=== PATIENT | male | born 1970 | race Caucasian/White ===

== ENCOUNTER 2019-06-29 11:39 | Inpatient (IN) | payer OTHER ==
[~2019-06-29] VITALS: Ht 193 cm; Wt 124.2 kg
[~2019-06-29 11:39] MED LIST: BUPIVACAINE 0.25%/EPI 1:200,000/PF 10 ML VIAL ONE; BUPIVACAINE/EPI/PF 0.5% 30 ML VIAL ONE; RINGERS SOLUTION,LACTATED 1,000 ML IV ONE; VANCOMYCIN HCL 1 GM/VIAL ONE
[2019-06-29] MEDS ORDERED: RINGERS SOLUTION,LACTATED 1,000 ML IV ONE (12:00)
[2019-06-29 12:23] LABS: BASOPHILS % (AUTO) 0.3 % (0.0-2.0); EOSINOPHILS % (AUTO) 4.2 % (1.0-6.0); HEMATOCRIT 37.3 % (41-53); HEMOGLOBIN 12.4 g/dL (13.5-17.5); LYMPHOCYTES # (AUTO) 1.5 K/uL (1.0-4.8); MEAN CORPUSCULAR HEMOGLOBIN 27.9 pg (26.0-34.0); MEAN CORPUSCULAR HGB CONC 33.2 G/dL (31.0-37.0); MEAN CORPUSCULAR VOLUME 84 fL (80-100); MONOCYTES # (AUTO) 0.7 K/uL (0.1-1.0); MONOCYTES % (AUTO) 8.2 % (2.0-9.0); NEUTROPHILS # (AUTO) 6.4 K/uL (1.8-7.7); NEUTROPHILS % (AUTO) 70.3 % (40.0-70.0); PLATELET COUNT (AUTO) 374 K/uL (150-450); RED BLOOD CELL COUNT(AUTO) 4.44 MIL/uL (4.50-5.90); RED CELL DISTRIBUTION WIDTH 14.4 % (11.5-14.5)
[2019-06-29 12:33] LABS: ANION GAP 8 mmol/L (8-16); CALCIUM, TOTAL 9.4 mg/dL (8.8-10.5); CARBON DIOXIDE 27 mmol/L (22-29); CHLORIDE 103 mmol/L (98-107); CREATININE 0.76 mg/dL (0.60-1.30); GLOMERULAR FILTR. RATE CALC > 60 mL/min (>60); GLUCOSE,RANDOM 121 mg/dL (70-110); SODIUM SERUM 138 mmol/L (136-145); UREA NITROGEN, BLOOD 16 mg/dL (7-18)
[2019-06-29 12:35] LABS: PROTHROMBIN TIME 10.9 SEC (9.4-11.6)
[2019-06-29 12:39] LABS: ALANINE AMINOTRANSFERASE 8 U/L (12-78); ALKALINE PHOSPHATASE 66 U/L (46-116); ASPARTATE AMINOTRANSFERASE 19 U/L (15-37); BILIRUBIN,TOTAL 0.5 mg/dL (0.1-1.0); TOTAL PROTEIN, SERUM 8.5 g/dL (6.4-8.2)
[2019-06-29] MEDS ORDERED: SODIUM CHLORIDE 0.9% 250 ML IV ONE (12:56)
[2019-06-29] MEDS ORDERED: PROPOFOL 1000 MG/ISO-OSM 200 ML IV ONE (13:17)
[2019-06-29] MEDS ORDERED: KETAMINE HCL 50 MG/ML 10 ML VIAL ONE (13:17)
[2019-06-29] MEDS ORDERED: SODIUM CHLORIDE 0.9% 500 ML IV ONE (13:19)
[2019-06-29] MEDS ORDERED: RINGERS SOLUTION,LACTATED 2,000 ML IV ONE (14:02)
[2019-06-29] MEDS ORDERED: DOCUSATE SODIUM 100 MG CAPSULE PO PRN (14:30)
[2019-06-29] MEDS ORDERED: BISACODYL 10 MG RECTAL RECTAL SUPPOSITORY PR PRN (14:30)
[2019-06-29] MEDS ORDERED: HYDROmorphone 2 MG/ML SYRINGE IVP PRN (14:30)
[2019-06-29] MEDS ORDERED: ONDANSETRON HCL 4 MG/2 ML VIAL IVP PRN (14:30)
[2019-06-29] MEDS ORDERED: HYDROCODONE/ACETAMINOPHEN 5-325 MG TABLET PO PRN (14:30)
[2019-06-29] MEDS ORDERED: ALBUTEROL SULFATE 2.5 MG/0.5 ML NEB SOLUTION NEB PRN (14:30)
[2019-06-29] MEDS ORDERED: 0.9% SODIUM CHLORIDE 10 ML SYRINGE IVP PRN (14:30)
[2019-06-29 16:40] LABS: ALANINE AMINOTRANSFERASE 8 U/L (12-78); ALBUMIN 3.7 g/dL (3.4-5.0); ALKALINE PHOSPHATASE 64 U/L (46-116); ANION GAP 11 mmol/L (8-16); ASPARTATE AMINOTRANSFERASE 18 U/L (15-37); BILIRUBIN,TOTAL 0.6 mg/dL (0.1-1.0); CALCIUM, TOTAL 9.6 mg/dL (8.8-10.5); CARBON DIOXIDE 26 mmol/L (22-29); CHLORIDE 103 mmol/L (98-107); CREATININE 0.68 mg/dL (0.60-1.30); GLOMERULAR FILTR. RATE CALC > 60 mL/min (>60); GLUCOSE,RANDOM 118 mg/dL (70-110); POTASSIUM 3.8 mmol/L (3.5-5.1); SODIUM SERUM 140 mmol/L (136-145); TOTAL PROTEIN, SERUM 7.9 g/dL (6.4-8.2); UREA NITROGEN, BLOOD 15 mg/dL (7-18)
[2019-06-29 18:26] VITALS: BP 150/98
[2019-06-29] MEDS: ACETAMINOPHEN 325 MG TABLET PO PRN (19:14)
[2019-06-29 19:45] VITALS: BP 147/97
[2019-06-29] MEDS ORDERED: BISA-151 PO (23:47)
[2019-06-29] MEDS ORDERED: LISI-662 PO (23:47)
[2019-06-29] MEDS ORDERED: CLON.5 PO (23:47)
[2019-06-29] MEDS ORDERED: FURO20 PO (23:47)
[2019-06-29] MEDS ORDERED: ASPI-1182 PO (23:47)
[2019-06-29] MEDS ORDERED: ACET-2247 PO (23:47)
[2019-06-29] MEDS ORDERED: AMLO10TA7 PO (23:47)
[2019-06-29] MEDS ORDERED: NAPR-1025 PO (23:47)
[2019-06-29] MEDS ORDERED: FE PR (23:47)
[2019-06-29] MEDS ORDERED: SENN8.6T90 PO (23:47)
[2019-06-29] MEDS ORDERED: MOM30 PO (23:47)
[2019-06-30] MEDS ORDERED: BISACODYL 5 MG EC TABLET PO PRN
[2019-06-30] MEDS ORDERED: MAGNESIUM HYDROXIDE SUSPENSION 30 ML UDCUP PO PRN
[2019-06-30] MEDS ORDERED: IPRATROPIUM BROMIDE 0.5 MG/2.5 ML NEB SOLUTION NEB PRN (00:15)
[2019-06-30] MEDS ORDERED: ALBUTEROL SULFATE 2.5 MG/0.5 ML NEB SOLUTION NEB PRN ×2 (00:15)
[2019-06-30] MEDS ORDERED: MULT-1203 PO (00:47)
[2019-06-30] MEDS ORDERED: ZINC30CA PO (00:52)
[2019-06-30] MEDS ORDERED: ZINC1CAP2 PO (00:52)
[2019-06-30] MEDS: ClonazePAM 0.5 MG TABLET PO SCH ×3 (01:56→20:37)
[2019-06-30] MEDS: ALBUTEROL SULFATE 2.5 MG/0.5 ML NEB SOLUTION NEB SCH ×4 (02:00→19:58)
[2019-06-30] MEDS: IPRATROPIUM BROMIDE 0.5 MG/2.5 ML NEB SOLUTION NEB SCH ×4 (02:00→19:58)
[2019-06-30] MEDS: ACETAMINOPHEN 325 MG TABLET PO PRN ×2 (04:12→13:24)
[2019-06-30 04:35] VITALS: BP 153/111
[2019-06-30 06:17] LABS: BASOPHILS % (AUTO) 0.4 % (0.0-2.0); EOSINOPHILS % (AUTO) 6.4 % (1.0-6.0); HEMATOCRIT 36.2 % (41-53); HEMOGLOBIN 12.2 g/dL (13.5-17.5); LYMPHOCYTES # (AUTO) 1.5 K/uL (1.0-4.8); MEAN CORPUSCULAR HEMOGLOBIN 28.5 pg (26.0-34.0); MEAN CORPUSCULAR HGB CONC 33.7 G/dL (31.0-37.0); MEAN CORPUSCULAR VOLUME 85 fL (80-100); MONOCYTES # (AUTO) 0.7 K/uL (0.1-1.0); MONOCYTES % (AUTO) 10.3 % (2.0-9.0); NEUTROPHILS # (AUTO) 4.1 K/uL (1.8-7.7); NEUTROPHILS % (AUTO) 60.9 % (40.0-70.0); PLATELET COUNT (AUTO) 352 K/uL (150-450); RED BLOOD CELL COUNT(AUTO) 4.28 MIL/uL (4.50-5.90); RED CELL DISTRIBUTION WIDTH 14.3 % (11.5-14.5)
[2019-06-30 06:43] LABS: ANION GAP 8 mmol/L (8-16); CALCIUM, TOTAL 9.8 mg/dL (8.8-10.5); CARBON DIOXIDE 27 mmol/L (22-29); CHLORIDE 103 mmol/L (98-107); CREATININE 0.67 mg/dL (0.60-1.30); GLOMERULAR FILTR. RATE CALC > 60 mL/min (>60); GLUCOSE,RANDOM 132 mg/dL (70-110); POTASSIUM 3.7 mmol/L (3.5-5.1); SODIUM SERUM 138 mmol/L (136-145); UREA NITROGEN, BLOOD 13 mg/dL (7-18)
[2019-06-30 08:00] VITALS: BP 165/106
[2019-06-30] MEDS: OxyCODONE HCL/ACETAMINOPHEN 5-325 MG TABLET PO PRN ×3 (09:01→22:16)
[2019-06-30] MEDS: ASPIRIN 81 MG EC TABLET PO SCH (09:02)
[2019-06-30] MEDS: LISINOPRIL 20 MG TABLET PO SCH (09:02)
[2019-06-30] MEDS: AmLODIPine BESYLATE 10 MG TABLET PO SCH (09:02)
[2019-06-30] MEDS: FUROSEMIDE 20 MG TABLET PO SCH (09:03)
[2019-06-30] MEDS: FAMOTIDINE 20 MG TABLET PO SCH (09:03)
[2019-06-30 12:00] VITALS: BP 162/105
[2019-06-30] MEDS: METOPROLOL TARTRATE 25 MG TABLET PO SCH ×2 (14:07→20:37)
[2019-06-30 16:00] VITALS: BP 159/105
[2019-06-30 19:50] LABS: ABG A-A DIFF O2 31.1 mmHg (10-20.0); ABG BASE EXCESS 1.1 mmol/L (-2.0-3.0); ABG CARBOXYHEMOGLOBIN 1.3 % (0.0-1.5); ABG HCO3 25.7 mmol/L (22.0-26.0); ABG METHEMOGLOBIN 0.3 % (0.0-1.5); ABG OXYGEN CONTENT 16.6 mL/dL (15.0-23.0); ABG OXYGEN SATURATION 95.4 % (95.0-98.0); ABG OXYHEMOGLOBIN 93.9 % (94.0-100.0); ABG PCO2 36 mmHg (35-45); ABG PH 7.458 (7.35-7.450); ABG TOTAL HEMOGLOBIN 12.5 G/dL (12.0-18.0); PO2, ARTERIAL BG 75.4 mmHg (88.0-96.0); SOURCE, BLOOD GAS ARTERIAL; TEMPERATURE, FAHRENHEIT, BG 98.6 FAHREN (96.0-98.6)
[2019-06-30 19:51] LABS: SITE, BLOOD GAS RT RADIAL
[2019-06-30] MEDS: VITAMINS A & D 113 GM OINTMENT TP SCH (20:46)
[2019-06-30 20:56] VITALS: BP 165/123
[2019-07-01] MEDS: ALBUTEROL SULFATE 2.5 MG/0.5 ML NEB SOLUTION NEB SCH ×4 (02:06→20:00)
[2019-07-01] MEDS: IPRATROPIUM BROMIDE 0.5 MG/2.5 ML NEB SOLUTION NEB SCH ×4 (02:07→20:00)
[2019-07-01 04:00] VITALS: BP 159/105
[2019-07-01] MEDS: OxyCODONE HCL/ACETAMINOPHEN 5-325 MG TABLET PO PRN (04:48)
[2019-07-01] MEDS ORDERED: INFLUENZA VIRUS VACCINE QVS 2019-20 (3YR+)/PF 60 MCG/0.5 ML SYRINGE IM ONE (07:15)
[2019-07-01] MEDS ORDERED: PNEUMOCOCCAL VACCINE POLYVALENT 0.5 ML VIAL [PPSV23] IM ONE (07:15)
[2019-07-01 07:35] VITALS: BP 167/98
[2019-07-01] MEDS: LISINOPRIL 20 MG TABLET PO SCH (07:55)
[2019-07-01] MEDS: FAMOTIDINE 20 MG TABLET PO SCH (07:55)
[2019-07-01] MEDS: VITAMINS A & D 113 GM OINTMENT TP SCH ×2 (07:56→20:27)
[2019-07-01] MEDS: FUROSEMIDE 20 MG TABLET PO SCH (07:56)
[2019-07-01] MEDS: METOPROLOL TARTRATE 25 MG TABLET PO SCH ×2 (07:56→20:17)
[2019-07-01] MEDS: AmLODIPine BESYLATE 10 MG TABLET PO SCH (07:56)
[2019-07-01] MEDS: MULTIVITAMINS WITH MINERALS, THERAPEUTIC TABLET PO SCH (07:56)
[2019-07-01] MEDS: ASPIRIN 81 MG EC TABLET PO SCH (07:56)
[2019-07-01] MEDS: ClonazePAM 0.5 MG TABLET PO SCH ×2 (07:56→20:17)
[2019-07-01 11:20] VITALS: BP 142/75
[2019-07-01] MEDS ORDERED: SODIUM CHLORIDE 0.9% 0 ML ONE (11:28)
[2019-07-01] MEDS ORDERED: IOVERSOL 350 MG/ML 150 ML VIAL ONE (11:28)
[2019-07-01 15:10] VITALS: BP 140/84
[2019-07-01 19:54] VITALS: BP 152/104
[2019-07-01] MEDS: HYDROmorphone 2 MG/ML SYRINGE IVP PRN ×2 (20:23→23:52)
[2019-07-01 23:50] VITALS: BP 127/89
[2019-07-02 00:39] VITALS: BP 132/88
[2019-07-02] MEDS: IPRATROPIUM BROMIDE 0.5 MG/2.5 ML NEB SOLUTION NEB SCH ×4 (02:00→19:59)
[2019-07-02] MEDS: ALBUTEROL SULFATE 2.5 MG/0.5 ML NEB SOLUTION NEB SCH ×4 (02:00→19:59)
[2019-07-02 04:39] VITALS: BP 144/94
[2019-07-02 07:16] VITALS: BP 162/82
[2019-07-02] MEDS: AmLODIPine BESYLATE 10 MG TABLET PO SCH (07:43)
[2019-07-02] MEDS: FUROSEMIDE 20 MG TABLET PO SCH (07:43)
[2019-07-02] MEDS: ASPIRIN 81 MG EC TABLET PO SCH (07:43)
[2019-07-02] MEDS: METOPROLOL TARTRATE 25 MG TABLET PO SCH ×2 (07:43→21:20)
[2019-07-02] MEDS: MULTIVITAMINS WITH MINERALS, THERAPEUTIC TABLET PO SCH (07:43)
[2019-07-02] MEDS: ClonazePAM 0.5 MG TABLET PO SCH ×2 (07:43→21:20)
[2019-07-02] MEDS: LISINOPRIL 20 MG TABLET PO SCH (07:43)
[2019-07-02] MEDS: FAMOTIDINE 20 MG TABLET PO SCH (07:43)
[2019-07-02] MEDS: VITAMINS A & D 113 GM OINTMENT TP SCH ×3 (07:44→21:20)
[2019-07-02] MEDS: HYDROmorphone 2 MG/ML SYRINGE IVP PRN ×4 (08:48→23:09)
[2019-07-02 09:06] LABS: BASOPHILS % (AUTO) 0.3 % (0.0-2.0); HEMATOCRIT 36.3 % (41-53); HEMOGLOBIN 12.2 g/dL (13.5-17.5); LYMPHOCYTES # (AUTO) 1.4 K/uL (1.0-4.8); LYMPHOCYTES % (AUTO) 13.4 % (22.0-44.0); MEAN CORPUSCULAR HEMOGLOBIN 28.3 pg (26.0-34.0); MEAN CORPUSCULAR HGB CONC 33.5 G/dL (31.0-37.0); MEAN CORPUSCULAR VOLUME 85 fL (80-100); MONOCYTES # (AUTO) 0.7 K/uL (0.1-1.0); MONOCYTES % (AUTO) 6.7 % (2.0-9.0); NEUTROPHILS # (AUTO) 7.7 K/uL (1.8-7.7); NEUTROPHILS % (AUTO) 75.6 % (40.0-70.0); PLATELET COUNT (AUTO) 367 K/uL (150-450); RED BLOOD CELL COUNT(AUTO) 4.29 MIL/uL (4.50-5.90); RED CELL DISTRIBUTION WIDTH 13.9 % (11.5-14.5)
[2019-07-02 09:31] LABS: ALANINE AMINOTRANSFERASE 11 U/L (12-78); ALBUMIN 3.6 g/dL (3.4-5.0); ALKALINE PHOSPHATASE 65 U/L (46-116); ANION GAP 9 mmol/L (8-16); ASPARTATE AMINOTRANSFERASE 15 U/L (15-37); BILIRUBIN,TOTAL 0.5 mg/dL (0.1-1.0); CALCIUM, TOTAL 9.5 mg/dL (8.8-10.5); CARBON DIOXIDE 28 mmol/L (22-29); CHLORIDE 101 mmol/L (98-107); CREATININE 0.92 mg/dL (0.60-1.30); GLOMERULAR FILTR. RATE CALC > 60 mL/min (>60); GLUCOSE,RANDOM 188 mg/dL (70-110); SODIUM SERUM 138 mmol/L (136-145); TOTAL PROTEIN, SERUM 7.5 g/dL (6.4-8.2); UREA NITROGEN, BLOOD 21 mg/dL (7-18)
[2019-07-02 11:10] VITALS: BP 126/81
[2019-07-02] MEDS ORDERED: MAGNESIUM SULFATE 4 GM/WATER 100 ML IV PRN (16:00)
[2019-07-02] MEDS ORDERED: MAGNESIUM SULFATE 2 GM/WATER 50 ML IV PRN (16:00)
[2019-07-02] MEDS: MAGNESIUM OXIDE 400 MG TABLET PO PRN ×2 (16:01→21:20)
[2019-07-02 19:53] VITALS: BP 131/69
[2019-07-02 23:26] VITALS: BP 132/80
[2019-07-03] MEDS: OxyCODONE HCL/ACETAMINOPHEN 5-325 MG TABLET PO PRN ×2 (01:18→21:08)
[2019-07-03] MEDS: ALBUTEROL SULFATE 2.5 MG/0.5 ML NEB SOLUTION NEB SCH ×3 (02:00→15:15)
[2019-07-03] MEDS: IPRATROPIUM BROMIDE 0.5 MG/2.5 ML NEB SOLUTION NEB SCH ×3 (02:00→15:15)
[2019-07-03] MEDS: MAGNESIUM OXIDE 400 MG TABLET PO PRN (02:05)
[2019-07-03] MEDS: HYDROmorphone 2 MG/ML SYRINGE IVP PRN ×2 (03:39→22:42)
[2019-07-03 03:45] VITALS: BP 147/85
[2019-07-03 05:39] LABS: BASOPHILS % (AUTO) 0.3 % (0.0-2.0); EOSINOPHILS % (AUTO) 4.6 % (1.0-6.0); HEMATOCRIT 35.7 % (41-53); HEMOGLOBIN 11.9 g/dL (13.5-17.5); LYMPHOCYTES # (AUTO) 1.7 K/uL (1.0-4.8); MEAN CORPUSCULAR HEMOGLOBIN 28.1 pg (26.0-34.0); MEAN CORPUSCULAR HGB CONC 33.2 G/dL (31.0-37.0); MEAN CORPUSCULAR VOLUME 85 fL (80-100); MONOCYTES # (AUTO) 1.1 K/uL (0.1-1.0); MONOCYTES % (AUTO) 11.2 % (2.0-9.0); NEUTROPHILS # (AUTO) 6.7 K/uL (1.8-7.7); NEUTROPHILS % (AUTO) 66.9 % (40.0-70.0); PLATELET COUNT (AUTO) 377 K/uL (150-450); RED BLOOD CELL COUNT(AUTO) 4.23 MIL/uL (4.50-5.90); RED CELL DISTRIBUTION WIDTH 14.1 % (11.5-14.5)
[2019-07-03 06:11] LABS: ALANINE AMINOTRANSFERASE 8 U/L (12-78); ALBUMIN 3.3 g/dL (3.4-5.0); ALKALINE PHOSPHATASE 59 U/L (46-116); ANION GAP 9 mmol/L (8-16); ASPARTATE AMINOTRANSFERASE 17 U/L (15-37); BILIRUBIN,TOTAL 0.6 mg/dL (0.1-1.0); CALCIUM, TOTAL 9.3 mg/dL (8.8-10.5); CARBON DIOXIDE 29 mmol/L (22-29); CHLORIDE 101 mmol/L (98-107); CREATININE 0.83 mg/dL (0.60-1.30); GLOMERULAR FILTR. RATE CALC > 60 mL/min (>60); GLUCOSE,RANDOM 129 mg/dL (70-110); SODIUM SERUM 139 mmol/L (136-145); TOTAL PROTEIN, SERUM 7.6 g/dL (6.4-8.2); UREA NITROGEN, BLOOD 20 mg/dL (7-18)
[2019-07-03] MEDS ORDERED: SODIUM CHLORIDE 0.9% 1,000 ML IV ONE ×2 (07:47→08:11)
[2019-07-03] MEDS ORDERED: SUGAMMADEX SODIUM 200 MG/2 ML VIAL IVP ONE (09:48)
[2019-07-03] MEDS ORDERED: ALBUTEROL SULFATE 2.5 MG/0.5 ML NEB SOLUTION NEB ONE (10:06)
[2019-07-03] MEDS ORDERED: IPRATROPIUM BROMIDE 0.5 MG/2.5 ML NEB SOLUTION NEB ONE (10:06)
[2019-07-03] MEDS: AmLODIPine BESYLATE 10 MG TABLET PO SCH (11:41)
[2019-07-03] MEDS: LISINOPRIL 20 MG TABLET PO SCH (11:41)
[2019-07-03] MEDS: MULTIVITAMINS WITH MINERALS, THERAPEUTIC TABLET PO SCH (11:42)
[2019-07-03] MEDS: FAMOTIDINE 20 MG TABLET PO SCH (11:42)
[2019-07-03] MEDS: ClonazePAM 0.5 MG TABLET PO SCH ×2 (11:42→21:05)
[2019-07-03] MEDS: METOPROLOL TARTRATE 25 MG TABLET PO SCH ×2 (11:42→21:05)
[2019-07-03] MEDS: ASPIRIN 81 MG EC TABLET PO SCH (11:42)
[2019-07-03] MEDS: FUROSEMIDE 20 MG TABLET PO SCH (11:42)
[2019-07-03] MEDS: VITAMINS A & D 113 GM OINTMENT TP SCH ×2 (11:44→21:00)
[2019-07-03 11:46] VITALS: BP 120/85
[2019-07-03 15:11] VITALS: BP 136/78
[2019-07-03 20:22] VITALS: BP 118/70
[2019-07-03 23:56] VITALS: BP 135/92
[2019-07-04] VITALS (9 sets, daily range): BP systolic 119–186; BP diastolic 62–89
[2019-07-04] MEDS: IPRATROPIUM BROMIDE 0.5 MG/2.5 ML NEB SOLUTION NEB SCH ×5 (02:00→20:35)
[2019-07-04] MEDS: ALBUTEROL SULFATE 2.5 MG/0.5 ML NEB SOLUTION NEB SCH ×5 (02:00→20:35)
[2019-07-04] MEDS ORDERED: MIDAZOLAM HCL 2 MG/2 ML VIAL IVP ONE ×2 (06:24→12:00)
[2019-07-04] MEDS ORDERED: FentaNYL CITRATE-PF 100 MCG/2 ML VIAL IVP ONE (06:24)
[2019-07-04] MEDS ORDERED: PROPOFOL 1% 20 ML VIAL IVP ONE (06:24)
[2019-07-04] MEDS ORDERED: ROCURONIUM BROMIDE 10 MG/ML 5 ML VIAL IVP ONE (06:24)
[2019-07-04] MEDS ORDERED: LIDOCAINE/PF 2% 5 ML VIAL IM ONE (06:24)
[2019-07-04] MEDS ORDERED: KETAMINE HCL 50 MG/ML 10 ML VIAL IVP ONE ×2 (06:24→12:00)
[2019-07-04] MEDS: FUROSEMIDE 20 MG TABLET PO SCH (08:58)
[2019-07-04] MEDS: ASPIRIN 81 MG EC TABLET PO SCH (08:58)
[2019-07-04] MEDS: METOPROLOL TARTRATE 25 MG TABLET PO SCH ×2 (08:58→21:27)
[2019-07-04] MEDS: MULTIVITAMINS WITH MINERALS, THERAPEUTIC TABLET PO SCH (08:58)
[2019-07-04] MEDS: OxyCODONE HCL/ACETAMINOPHEN 5-325 MG TABLET PO PRN (08:58)
[2019-07-04] MEDS: AmLODIPine BESYLATE 10 MG TABLET PO SCH (08:58)
[2019-07-04] MEDS: ClonazePAM 0.5 MG TABLET PO SCH ×2 (08:59→21:27)
[2019-07-04] MEDS: FAMOTIDINE 20 MG TABLET PO SCH (08:59)
[2019-07-04] MEDS: LISINOPRIL 20 MG TABLET PO SCH (08:59)
[2019-07-04] MEDS: VITAMINS A & D 113 GM OINTMENT TP SCH ×2 (09:00→21:00)
[2019-07-04] MEDS ORDERED: RINGERS SOLUTION,LACTATED 1,000 ML IV ONE (11:45)
[2019-07-04] MEDS ORDERED: FentaNYL CITRATE-PF 250 MCG/5 ML VIAL IVP ONE (12:00)
[2019-07-04] MEDS ORDERED: HYDROmorphone 2 MG/ML SYRINGE IVP ONE (12:00)
[2019-07-04] MEDS ORDERED: SODIUM CHLORIDE 0.9% 500 ML IV ONE (12:51)
[2019-07-04] MEDS ORDERED: VANCOMYCIN HCL 1 GM/VIAL ONE (13:55)
[2019-07-04] MEDS ORDERED: BUPIVACAINE HCL/PF 0.5% 30 ML VIAL ONE (13:55)
[2019-07-04] MEDS ORDERED: SODIUM CHLORIDE 0.9% 20 ML ONE (13:56)
[2019-07-04] MEDS ORDERED: BACITRACIN 50,000 UNITS/VIAL ONE ×2 (13:56→17:11)
[2019-07-04] MEDS ORDERED: BACITRACIN 28.4 GM OINTMENT TP ONE (14:04)
[2019-07-04] MEDS ORDERED: SODIUM CHLORIDE 0.9% 250 ML IV ONE (14:05)
[2019-07-04] MEDS ORDERED: MINERAL OIL/PETROLATUM,WHITE PF 3.5 GM OPHTHALMIC OINTMENT ONE (14:12)
[2019-07-04] MEDS ORDERED: PHENYLEPHRINE 200 MG/D5%-WATER 250 ML IV PRN (14:30)
[2019-07-04] MEDS ORDERED: PIPERACILLIN SODIUM/TAZOBACTAM 3.375 GM/VIAL TP ONE (15:30)
[2019-07-04] MEDS ORDERED: TRANEXAMIC ACID 1,000 MG in DEXTROSE 5%-WATER 50 ML IV ONE (16:15)
[2019-07-04] MEDS ORDERED: ALBUMIN HUMAN 25%-12.5GM/50ML 50 ML ONE (16:22)
[2019-07-04] MEDS ORDERED: SODIUM CHLORIDE 0.9% 1,000 ML IV ONE (16:26)
[2019-07-04] MEDS ORDERED: SODIUM CHLORIDE 0.9% 10 ML ONE (17:11)
[2019-07-04] MEDS ORDERED: SUGAMMADEX SODIUM 200 MG/2 ML VIAL IVP ONE (17:46)
[2019-07-04] MEDS ORDERED: SODIUM BICARBONATE [ADULT] 8.4% 50 MEQ/50 ML SYRINGE IVP ONE (17:50)
[2019-07-04] MEDS ORDERED: DEXAMETHASONE SOD PHOS 4 MG/ML VIAL IVP PRN (18:15)
[2019-07-04] MEDS ORDERED: NALOXONE HCL 0.4 MG/ML VIAL IVP PRN (18:15)
[2019-07-04] MEDS ORDERED: MAG HYDROX/AL HYDROX/SIMETH 30 ML SUSP UDCUP PO PRN (18:15)
[2019-07-04 19:08] LABS: BASOPHILS % (AUTO) 0.2 % (0.0-2.0); EOSINOPHILS % (AUTO) 0.6 % (1.0-6.0); HEMATOCRIT 34.5 % (41-53); HEMOGLOBIN 11.4 g/dL (13.5-17.5); LYMPHOCYTES # (AUTO) 0.6 K/uL (1.0-4.8); LYMPHOCYTES % (AUTO) 5.9 % (22.0-44.0); MEAN CORPUSCULAR HEMOGLOBIN 28.3 pg (26.0-34.0); MEAN CORPUSCULAR HGB CONC 32.9 G/dL (31.0-37.0); MEAN CORPUSCULAR VOLUME 86 fL (80-100); MONOCYTES # (AUTO) 0.2 K/uL (0.1-1.0); MONOCYTES % (AUTO) 2.1 % (2.0-9.0); NEUTROPHILS # (AUTO) 8.5 K/uL (1.8-7.7); NEUTROPHILS % (AUTO) 91.2 % (40.0-70.0); PLATELET COUNT (AUTO) 305 K/uL (150-450); RED BLOOD CELL COUNT(AUTO) 4.01 MIL/uL (4.50-5.90); RED CELL DISTRIBUTION WIDTH 14.1 % (11.5-14.5)
[2019-07-04 19:24] LABS: ALANINE AMINOTRANSFERASE 17 U/L (12-78); ALKALINE PHOSPHATASE 58 U/L (46-116); ANION GAP 5 mmol/L (8-16); ASPARTATE AMINOTRANSFERASE 31 U/L (15-37); BILIRUBIN,TOTAL 0.7 mg/dL (0.1-1.0); CARBON DIOXIDE 30 mmol/L (22-29); CHLORIDE 103 mmol/L (98-107); CREATININE 0.88 mg/dL (0.60-1.30); GLOMERULAR FILTR. RATE CALC > 60 mL/min (>60); GLUCOSE,RANDOM 187 mg/dL (70-110); INR 1.2 (0.9-1.1); POTASSIUM 4.1 mmol/L (3.5-5.1); PROTHROMBIN TIME 11.9 SEC (9.4-11.6); SODIUM SERUM 138 mmol/L (136-145); TOTAL PROTEIN, SERUM 6.8 g/dL (6.4-8.2); UREA NITROGEN, BLOOD 18 mg/dL (7-18)
[2019-07-04 19:34] LABS: PLATELET MORPHOLOGY COMMENT NORMAL
[2019-07-04 20:15] LABS: ABG METHEMOGLOBIN 0.3 % (0.0-1.5); SOURCE, BLOOD GAS ARTERIAL; TEMPERATURE, FAHRENHEIT, BG 98.2 FAHREN (96.0-98.6)
[2019-07-04 20:19] LABS: ABG A-A DIFF O2 290.7 mmHg (10-20.0); ABG BASE EXCESS 2.1 mmol/L (-2.0-3.0); ABG CARBOXYHEMOGLOBIN 1.2 % (0.0-1.5); ABG OXYGEN CONTENT 17.2 mL/dL (15.0-23.0); ABG OXYGEN SATURATION 97.1 % (95.0-98.0); ABG OXYHEMOGLOBIN 95.6 % (94.0-100.0); ABG PCO2 44 mmHg (35-45); ABG PH 7.402 (7.35-7.450); ABG TOTAL HEMOGLOBIN 12.7 G/dL (12.0-18.0); PO2, ARTERIAL BG 88.9 mmHg (88.0-96.0)
[2019-07-04 20:20] LABS: O2 DEVICE,BLOOD GAS MASK (ROOM AIR); SITE, BLOOD GAS RT RADIAL
[2019-07-04] MEDS: DOCUSATE SODIUM 100 MG CAPSULE PO SCH (21:27)
[2019-07-04] MEDS: HYDROmorphone 2 MG/ML SYRINGE IVP PRN (21:29)
[2019-07-05] VITALS (10 sets, daily range): BP systolic 104–154; BP diastolic 54–85
[2019-07-05] MEDS: ALBUTEROL SULFATE 2.5 MG/0.5 ML NEB SOLUTION NEB SCH ×4 (02:07→19:57)
[2019-07-05] MEDS: IPRATROPIUM BROMIDE 0.5 MG/2.5 ML NEB SOLUTION NEB SCH ×4 (02:07→19:57)
[2019-07-05] MEDS ORDERED: ROCURONIUM BROMIDE 10 MG/ML 5 ML VIAL IVP ONE (06:00)
[2019-07-05] MEDS ORDERED: 0.9% SODIUM CHLORIDE 10 ML VIAL IVP ONE (06:00)
[2019-07-05] MEDS ORDERED: PROPOFOL 1% 20 ML VIAL IVP ONE (06:00)
[2019-07-05] MEDS ORDERED: EPHEDrine SULFATE 50 MG/ML VIAL IM ONE (06:00)
[2019-07-05] MEDS ORDERED: PHENYLEPHRINE HCL 10 MG/ML VIAL IVP ONE (06:00)
[2019-07-05] MEDS ORDERED: ONDANSETRON HCL 4 MG/2 ML VIAL IVP ONE (06:00)
[2019-07-05] MEDS ORDERED: LIDOCAINE/PF 2% 5 ML VIAL IM ONE (06:00)
[2019-07-05 06:15] LABS: BASOPHILS % (AUTO) 0.2 % (0.0-2.0); EOSINOPHILS % (AUTO) 0 % (1.0-6.0); HEMATOCRIT 34.7 % (41-53); HEMOGLOBIN 11.5 g/dL (13.5-17.5); LYMPHOCYTES # (AUTO) 1.2 K/uL (1.0-4.8); LYMPHOCYTES % (AUTO) 9.9 % (22.0-44.0); MEAN CORPUSCULAR HEMOGLOBIN 28.3 pg (26.0-34.0); MEAN CORPUSCULAR HGB CONC 33.1 G/dL (31.0-37.0); MEAN CORPUSCULAR VOLUME 86 fL (80-100); MONOCYTES % (AUTO) 8.4 % (2.0-9.0); NEUTROPHILS # (AUTO) 9.8 K/uL (1.8-7.7); NEUTROPHILS % (AUTO) 81.5 % (40.0-70.0); PLATELET COUNT (AUTO) 386 K/uL (150-450); RED BLOOD CELL COUNT(AUTO) 4.06 MIL/uL (4.50-5.90); RED CELL DISTRIBUTION WIDTH 14.3 % (11.5-14.5)
[2019-07-05 06:43] LABS: ALANINE AMINOTRANSFERASE 14 U/L (12-78); ALBUMIN 3.1 g/dL (3.4-5.0); ALKALINE PHOSPHATASE 56 U/L (46-116); ANION GAP 5 mmol/L (8-16); ASPARTATE AMINOTRANSFERASE 30 U/L (15-37); BILIRUBIN,TOTAL 0.5 mg/dL (0.1-1.0); CALCIUM, TOTAL 9.4 mg/dL (8.8-10.5); CARBON DIOXIDE 30 mmol/L (22-29); CHLORIDE 100 mmol/L (98-107); CREATININE 0.79 mg/dL (0.60-1.30); GLOMERULAR FILTR. RATE CALC > 60 mL/min (>60); GLUCOSE,RANDOM 189 mg/dL (70-110); POTASSIUM 4.7 mmol/L (3.5-5.1); SODIUM SERUM 135 mmol/L (136-145); TOTAL PROTEIN, SERUM 6.7 g/dL (6.4-8.2); UREA NITROGEN, BLOOD 18 mg/dL (7-18)
[2019-07-05 09:01] LABS: ABG A-A DIFF O2 115.1 mmHg (10-20.0); ABG HCO3 28.7 mmol/L (22.0-26.0); ABG METHEMOGLOBIN 0.3 % (0.0-1.5); ABG OXYGEN CONTENT 17.2 mL/dL (15.0-23.0); ABG OXYGEN SATURATION 97.7 % (95.0-98.0); ABG OXYHEMOGLOBIN 96.4 % (94.0-100.0); ABG PCO2 40 mmHg (35-45); ABG PH 7.472 (7.35-7.450); ABG TOTAL HEMOGLOBIN 12.6 G/dL (12.0-18.0); PO2, ARTERIAL BG 95.1 mmHg (88.0-96.0); SOURCE, BLOOD GAS ARTERIAL; TEMPERATURE, FAHRENHEIT, BG 98.6 FAHREN (96.0-98.6)
[2019-07-05 09:19] LABS: SITE, BLOOD GAS ARTERIAL LINE
[2019-07-05 09:20] LABS: O2 DEVICE,BLOOD GAS CANNULA (ROOM AIR)
[2019-07-05] MEDS: FAMOTIDINE 20 MG TABLET PO SCH (09:39)
[2019-07-05] MEDS: FUROSEMIDE 20 MG TABLET PO SCH (09:39)
[2019-07-05] MEDS: AmLODIPine BESYLATE 10 MG TABLET PO SCH (09:39)
[2019-07-05] MEDS: ASPIRIN 81 MG EC TABLET PO SCH (09:39)
[2019-07-05] MEDS: DOCUSATE SODIUM 100 MG CAPSULE PO SCH ×2 (09:40→20:31)
[2019-07-05] MEDS: LISINOPRIL 20 MG TABLET PO SCH (09:40)
[2019-07-05] MEDS: ClonazePAM 0.5 MG TABLET PO SCH ×2 (09:40→20:31)
[2019-07-05] MEDS: METOPROLOL TARTRATE 25 MG TABLET PO SCH ×2 (09:40→20:32)
[2019-07-05] MEDS: MULTIVITAMINS WITH MINERALS, THERAPEUTIC TABLET PO SCH (09:41)
[2019-07-05] MEDS: VITAMINS A & D 113 GM OINTMENT TP SCH ×2 (09:41→20:27)
[2019-07-05] MEDS: HYDROmorphone 2 MG/ML SYRINGE IVP PRN ×2 (09:50→22:40)
[2019-07-05] MEDS: OxyCODONE HCL/ACETAMINOPHEN 5-325 MG TABLET PO PRN ×2 (14:42→21:42)
[2019-07-06] MEDS: IPRATROPIUM BROMIDE 0.5 MG/2.5 ML NEB SOLUTION NEB SCH ×4 (02:00→20:31)
[2019-07-06] MEDS: ALBUTEROL SULFATE 2.5 MG/0.5 ML NEB SOLUTION NEB SCH ×4 (02:00→20:31)
[2019-07-06] MEDS: HYDROmorphone 2 MG/ML SYRINGE IVP PRN ×3 (03:18→21:38)
[2019-07-06 05:56] VITALS: BP 113/66
[2019-07-06 07:41] VITALS: BP 138/81
[2019-07-06] MEDS: ClonazePAM 0.5 MG TABLET PO SCH ×2 (08:23→21:36)
[2019-07-06] MEDS: ASPIRIN 81 MG EC TABLET PO SCH (08:23)
[2019-07-06] MEDS: DOCUSATE SODIUM 100 MG CAPSULE PO SCH ×2 (08:23→21:36)
[2019-07-06] MEDS: FAMOTIDINE 20 MG TABLET PO SCH (08:24)
[2019-07-06] MEDS: FUROSEMIDE 20 MG TABLET PO SCH (08:24)
[2019-07-06] MEDS: AmLODIPine BESYLATE 10 MG TABLET PO SCH (08:24)
[2019-07-06] MEDS: METOPROLOL TARTRATE 25 MG TABLET PO SCH ×2 (08:24→21:36)
[2019-07-06] MEDS: LISINOPRIL 20 MG TABLET PO SCH (08:25)
[2019-07-06] MEDS: MULTIVITAMINS WITH MINERALS, THERAPEUTIC TABLET PO SCH (08:25)
[2019-07-06] MEDS: ACETAMINOPHEN 325 MG TABLET PO PRN (08:38)
[2019-07-06] MEDS: VITAMINS A & D 113 GM OINTMENT TP SCH ×2 (09:00→21:00)
[2019-07-06 10:38] VITALS: BP 150/70
[2019-07-06] MEDS: OxyCODONE HCL/ACETAMINOPHEN 5-325 MG TABLET PO PRN (17:53)
[2019-07-06 20:04] VITALS: BP 127/79
[2019-07-06] MEDS: ZOLPIDEM TARTRATE 10 MG TABLET PO PRN (23:45)
[2019-07-06 23:53] VITALS: BP 148/82
[2019-07-07] MEDS: ALBUTEROL SULFATE 2.5 MG/0.5 ML NEB SOLUTION NEB SCH ×4 (02:41→20:46)
[2019-07-07] MEDS: IPRATROPIUM BROMIDE 0.5 MG/2.5 ML NEB SOLUTION NEB SCH ×4 (02:41→20:46)
[2019-07-07] MEDS: HYDROmorphone 2 MG/ML SYRINGE IVP PRN ×4 (03:41→20:32)
[2019-07-07 08:21] VITALS: BP 144/78
[2019-07-07] MEDS: VITAMINS A & D 113 GM OINTMENT TP SCH ×2 (09:00→20:28)
[2019-07-07] MEDS: FUROSEMIDE 20 MG TABLET PO SCH (09:00)
[2019-07-07] MEDS: LISINOPRIL 20 MG TABLET PO SCH (09:00)
[2019-07-07] MEDS: FAMOTIDINE 20 MG TABLET PO SCH (09:58)
[2019-07-07] MEDS: AmLODIPine BESYLATE 10 MG TABLET PO SCH (09:58)
[2019-07-07] MEDS: METOPROLOL TARTRATE 25 MG TABLET PO SCH ×2 (09:58→20:26)
[2019-07-07] MEDS: DOCUSATE SODIUM 100 MG CAPSULE PO SCH ×2 (09:58→20:27)
[2019-07-07] MEDS: ASPIRIN 81 MG EC TABLET PO SCH (09:58)
[2019-07-07] MEDS: MULTIVITAMINS WITH MINERALS, THERAPEUTIC TABLET PO SCH (09:59)
[2019-07-07] MEDS: ClonazePAM 0.5 MG TABLET PO SCH ×2 (09:59→20:26)
[2019-07-07 10:58] LABS: BASOPHILS % (AUTO) 0.7 % (0.0-2.0); EOSINOPHILS % (AUTO) 4.3 % (1.0-6.0); HEMATOCRIT 32.3 % (41-53); HEMOGLOBIN 10.9 g/dL (13.5-17.5); LYMPHOCYTES # (AUTO) 1.5 K/uL (1.0-4.8); LYMPHOCYTES % (AUTO) 14.1 % (22.0-44.0); MEAN CORPUSCULAR HEMOGLOBIN 28.9 pg (26.0-34.0); MEAN CORPUSCULAR HGB CONC 33.6 G/dL (31.0-37.0); MEAN CORPUSCULAR VOLUME 86 fL (80-100); MONOCYTES # (AUTO) 1.1 K/uL (0.1-1.0); MONOCYTES % (AUTO) 10.7 % (2.0-9.0); NEUTROPHILS # (AUTO) 7.4 K/uL (1.8-7.7); NEUTROPHILS % (AUTO) 70.2 % (40.0-70.0); PLATELET COUNT (AUTO) 380 K/uL (150-450); RED BLOOD CELL COUNT(AUTO) 3.76 MIL/uL (4.50-5.90); RED CELL DISTRIBUTION WIDTH 13.8 % (11.5-14.5)
[2019-07-07 11:11] LABS: ALANINE AMINOTRANSFERASE 20 U/L (12-78); ALBUMIN 3.3 g/dL (3.4-5.0); ALKALINE PHOSPHATASE 66 U/L (46-116); ANION GAP 9 mmol/L (8-16); ASPARTATE AMINOTRANSFERASE 28 U/L (15-37); BILIRUBIN,TOTAL 0.7 mg/dL (0.1-1.0); CALCIUM, TOTAL 9.8 mg/dL (8.8-10.5); CARBON DIOXIDE 29 mmol/L (22-29); CHLORIDE 99 mmol/L (98-107); CREATININE 0.63 mg/dL (0.60-1.30); GLOMERULAR FILTR. RATE CALC > 60 mL/min (>60); GLUCOSE,RANDOM 139 mg/dL (70-110); SODIUM SERUM 137 mmol/L (136-145); TOTAL PROTEIN, SERUM 7.3 g/dL (6.4-8.2)
[2019-07-07 11:26] VITALS: BP 139/82
[2019-07-07 11:59] LABS: UREA NITROGEN, BLOOD 12 mg/dL (7-18)
[2019-07-07 13:30] VITALS: BP 122/69
[2019-07-07 16:13] VITALS: BP 122/78
[2019-07-07 17:50] VITALS: BP 136/81
[2019-07-07 20:51] VITALS: BP 136/77
[2019-07-08] VITALS (7 sets, daily range): BP systolic 109–156; BP diastolic 67–111
[2019-07-08] MEDS: ALBUTEROL SULFATE 2.5 MG/0.5 ML NEB SOLUTION NEB SCH ×4 (00:23→19:50)
[2019-07-08] MEDS: IPRATROPIUM BROMIDE 0.5 MG/2.5 ML NEB SOLUTION NEB SCH ×4 (00:23→19:50)
[2019-07-08] MEDS: HYDROmorphone 2 MG/ML SYRINGE IVP PRN ×3 (00:46→20:16)
[2019-07-08] MEDS: ZOLPIDEM TARTRATE 10 MG TABLET PO PRN (02:37)
[2019-07-08] MEDS: FAMOTIDINE 20 MG TABLET PO SCH (08:28)
[2019-07-08] MEDS: LISINOPRIL 20 MG TABLET PO SCH (08:28)
[2019-07-08] MEDS: DOCUSATE SODIUM 100 MG CAPSULE PO SCH ×2 (08:29→21:00)
[2019-07-08] MEDS: AmLODIPine BESYLATE 10 MG TABLET PO SCH (08:29)
[2019-07-08] MEDS: MULTIVITAMINS WITH MINERALS, THERAPEUTIC TABLET PO SCH (08:29)
[2019-07-08] MEDS: ClonazePAM 0.5 MG TABLET PO SCH ×2 (08:29→20:06)
[2019-07-08] MEDS: VITAMINS A & D 113 GM OINTMENT TP SCH ×2 (08:29→21:00)
[2019-07-08] MEDS: METOPROLOL TARTRATE 25 MG TABLET PO SCH ×2 (08:29→20:07)
[2019-07-08] MEDS: FUROSEMIDE 20 MG TABLET PO SCH (09:18)
[2019-07-08] MEDS: ASPIRIN 81 MG EC TABLET PO SCH (09:18)
[2019-07-08] MEDS: OxyCODONE HCL/ACETAMINOPHEN 5-325 MG TABLET PO PRN (16:19)
[2019-07-09 00:13] VITALS: BP 129/75
[2019-07-09] MEDS: HYDROmorphone 2 MG/ML SYRINGE IVP PRN ×3 (00:22→10:00)
[2019-07-09] MEDS: ACETAMINOPHEN 325 MG TABLET PO PRN (01:41)
[2019-07-09 04:00] VITALS: BP 112/66
[2019-07-09 07:58] VITALS: BP 124/71
[2019-07-09] MEDS: MULTIVITAMINS WITH MINERALS, THERAPEUTIC TABLET PO SCH (08:31)
[2019-07-09] MEDS: ClonazePAM 0.5 MG TABLET PO SCH (08:31)
[2019-07-09] MEDS: ASPIRIN 81 MG EC TABLET PO SCH (08:32)
[2019-07-09] MEDS: LISINOPRIL 20 MG TABLET PO SCH (08:32)
[2019-07-09] MEDS: METOPROLOL TARTRATE 25 MG TABLET PO SCH (08:32)
[2019-07-09] MEDS: AmLODIPine BESYLATE 10 MG TABLET PO SCH (08:32)
[2019-07-09] MEDS: FAMOTIDINE 20 MG TABLET PO SCH (08:32)
[2019-07-09] MEDS: DOCUSATE SODIUM 100 MG CAPSULE PO SCH (08:39)
[2019-07-09] MEDS: FUROSEMIDE 20 MG TABLET PO SCH (08:39)
[2019-07-09] MEDS: ALBUTEROL SULFATE 2.5 MG/0.5 ML NEB SOLUTION NEB SCH ×2 (08:44→14:05)
[2019-07-09] MEDS: IPRATROPIUM BROMIDE 0.5 MG/2.5 ML NEB SOLUTION NEB SCH ×2 (08:45→14:06)
[2019-07-09] MEDS: VITAMINS A & D 113 GM OINTMENT TP SCH (09:00)
[2019-07-09 12:37] VITALS: BP 134/78
[2019-07-09] MEDS: OxyCODONE HCL/ACETAMINOPHEN 5-325 MG TABLET PO PRN (13:46)
[2019-07-09] MEDS ORDERED: AUD NEB ×2 (15:03→15:17)
[2019-07-09] MEDS ORDERED: DOCU-275 PO (15:04)
[2019-07-09] MEDS ORDERED: FAMO20 PO (15:07)
[2019-07-09] MEDS ORDERED: IPRNEB IH ×2 (15:10→15:24)
[2019-07-09] MEDS ORDERED: METO25 PO (15:14)
[2019-07-09] MEDS ORDERED: VIT5OINT3 TP (15:16)
[2019-07-09] MEDS ORDERED: BISA10SU11 PR (15:21)
[2019-07-09] MEDS ORDERED: MAAES30 PO (15:38)
[2019-07-09] MEDS ORDERED: PERCT PO (15:41)
[2019-07-09] MEDS ORDERED: OXYC-530 PO (15:45)
[2019-07-09] MEDS ORDERED: CLON.5 PO (15:46)
[2019-07-09] MEDS ORDERED: MUPIROCIN CALCIUM 2% 22 GM OINTMENT NASAL SCH (21:00)
== END 2019-07-09 17:00 | DRG 518 ==
LOC: 6N 11:39 → 4E 17:07 → ICU 07-04 17:56 → 5S 07-05 12:50 → 4E 07-08 13:10
PROVIDERS: ADMIT Neurological Surgery; ATTEND Neurological Surgery
PROC: 30233N1 Transfusion of Nonautologous Red Blood Cells into Peripheral Vein, Percutaneous Approach (ICD-10-PCS; 2019-07-04)
PROC: 00BW0ZZ Excision of Cervical Spinal Cord, Open Approach (ICD-10-PCS; principal; 2019-07-04 14:30)
DX: M48.02 Spinal stenosis, cervical region (principal); G82.50 Quadriplegia, unspecified; G95.9 Disease of spinal cord, unspecified; J98.11 Atelectasis; I50.32 Chronic diastolic (congestive) heart failure; E44.0 Moderate protein-calorie malnutrition; L89.309 Pressure ulcer of unspecified buttock, unspecified stage; E66.01 Morbid (severe) obesity due to excess calories; G47.33 Obstructive sleep apnea (adult) (pediatric); G40.909 Epilepsy, unspecified, not intractable, without status epilepticus; L89.159 Pressure ulcer of sacral region, unspecified stage; Z91.19 Patient's noncompliance with other medical treatment and regimen; D64.9 Anemia, unspecified; I11.0 Hypertensive heart disease with heart failure; F17.210 Nicotine dependence, cigarettes, uncomplicated; F12.90 Cannabis use, unspecified, uncomplicated; W01.0XXA Fall on same level from slipping, tripping and stumbling without subsequent striking against object, initial encounter; L30.8 Other specified dermatitis; J44.9 Chronic obstructive pulmonary disease, unspecified; Z53.20 Procedure and treatment not carried out because of patient's decision for unspecified reasons; Y92.89 Other specified places as the place of occurrence of the external cause; Z68.33 Body mass index [BMI] 33.0-33.9, adult; Z82.49 Family history of ischemic heart disease and other diseases of the circulatory system; Y99.8 Other external cause status
CPT/HCPCS: 72040; 72141; 82805; 83735; 86850; 86900; 86901; 86920; 87081; 93005; 93306; 93970; 93971; 94640; 97167; 97530; 97535; G0238; G0378; J0690; J1100; J1170; J2250; J2370; J2405; J2543; J2704; J3010; J3370; J3490; J7030; J7040; J7050; J7060; J7120; P9016; P9047